=== PATIENT | female | born 1985 | race Caucasian/White ===

== ENCOUNTER 2021-11-28 11:44 | Emergency (ER) | payer OTHER ==
[~2021-11-28] VITALS: Ht 165.1 cm; Wt 67.7 kg
[2021-11-28] MEDS ORDERED: NS 1,000 ML IV ONE (12:55)
[2021-11-28] MEDS ORDERED: KETOROLAC 30 MG/ML 1ML VIAL IV ONE (12:55)
[2021-11-28 13:44] LABS: BASO % 0.5 % (0.0-1.0); EOS # 0.3 10^3/uL (0.0-0.5); EOS % 3.8 % (0.0-3.0); HEMATOCRIT 40.3 % (36.0-47.0); LYMPH # 1.9 10^3/uL (1.5-5.0); LYMPH % 22.1 % (24.0-44.0); MEAN CORPUSCULAR HEMOGLOBIN 27.9 pg (27.0-33.0); MEAN CORPUSCULAR HGB CONC 32.3 g/dl (32.0-36.5); MEAN CORPUSCULAR VOLUME 86.5 fl (80.0-96.0); MONO # 0.7 10^3/uL (0.0-0.8); MONO % 7.9 % (2.0-8.0); NEUTROPHILS # 5.6 10^3/uL (1.5-8.5); NEUTROPHILS % 65.5 % (36.0-66.0); PLATELET COUNT, AUTOMATED 285 10^3/uL (150-450); RED BLOOD COUNT 4.66 10^6/uL (4.00-5.40); WHITE BLOOD COUNT 8.6 10^3/uL (4.0-10.0)
[2021-11-28] MEDS ORDERED: ISOVUE-370 76% 100ML VIAL As Ordered ONE (13:58)
[2021-11-28 14:11] LABS: ERYTHROCYTE SEDIMENTATION RATE 5 mm/hr (0-20)
[2021-11-28] MEDS ORDERED: NAPR-837 PO (15:07)
[2021-11-28] MEDS ORDERED: LIDO2SOL17 PO (15:07)
[2021-11-28] MEDS ORDERED: CLEO300C2 PO (15:07)
[2021-11-28 15:12] VITALS: BP 119/73
== END 2021-11-28 15:21 | disposition home or self-care (01) ==
LOC: M ED 11:44
DX: K04.7 Periapical abscess without sinus (principal); L03.211 Cellulitis of face; I10 Essential (primary) hypertension; Z88.0 Allergy status to penicillin; Z79.899 Other long term (current) drug therapy
CPT/HCPCS: 70487; 80047; 85025; 85652; 86140; 96361; 96374; 99284; J1885; Q9967